=== PATIENT | female | born 1975 ===

== ENCOUNTER 2021-01-05 10:30 | Emergency (ER) | payer BC, MEDICAID ==
[~2021-01-05] VITALS: Ht 170.2 cm; Wt 92.6 kg
--- NOTE | 2021-01-05 11:41 | NUR ---
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
--- NOTE | 2021-01-05 11:48 | NUR ---
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
[2021-01-05 12:12] LABS: BASOPHILS % (AUTO) 1 % (0-1); EOSINOPHILS % (AUTO) 2 % (1-7); LYMPHOCYTES % (AUTO) 25 % (22-44); MEAN CORPUSCULAR HEMOGLOBIN 28.6 pg (27.0-34.8); MEAN PLATELET VOLUME 7.9 fL (7.4-10.4); MONOCYTES % (AUTO) 11 % (2-9); NEUTROPHILS % (AUTO) 61 % (42-75); PLATELET COUNT 387 x10^3/uL (130-400); RED BLOOD COUNT 5.08 x10^6/uL (3.82-5.3); RED CELL DISTRIBUTION WIDTH 13.2 % (9.6-15.2)
[2021-01-05 12:14] LABS: MD NO
[2021-01-05 12:15] VITALS: BP 127/59
[2021-01-05] MEDS ORDERED: BIRTH CONTROL PO (12:15)
--- NOTE | 2021-01-05 12:16 | NUR ---
PT WITH CONSTANT EPIGASTRIC PAIN "FOR LONG TIME NOW" PAIN SEEMS TO BE ASSOCIATED WITH EATING HAS TRIED OTC ANTACIDS WITH NO RELIEF. VSS, TEST RESULTS PENDING. CALL LIGHT W/I REACH
[2021-01-05 12:18] LABS: ALBUMIN 3.8 g/dL (3.4-5.0); ANION GAP 4 mmol/L (5-15); CALCIUM 9.4 mg/dL (8.5-10.1); CHLORIDE 111 mmol/L (98-107)
[2021-01-05 12:24] LABS: ALANINE AMINOTRANSFERASE 28 U/L (12-78); ALKALINE PHOSPHATASE 43 U/L (45-117); BILIRUBIN,TOTAL 0.3 mg/dL (0.2-1.0); CREATININE 0.74 mg/dL (0.55-1.02); TOTAL PROTEIN 8.2 g/dL (6.4-8.2)
== END 2021-01-05 14:05 | disposition home or self-care (01) ==
LOC: ED 13:52
DX: K21.9 Gastro-esophageal reflux disease without esophagitis (principal); K29.00 Acute gastritis without bleeding
CPT/HCPCS: 36415; 71045; 76700; 80053; 83690; 84703; 85025; 99285